=== PATIENT | female | born 1965 | race Caucasian/White ===

== ENCOUNTER 2023-10-10 08:55 | Emergency (ER) | payer BC ==
[~2023-10-10] VITALS: Ht 170.2 cm; Wt 113.2 kg
[2023-10-10] MEDS ORDERED: NEURONTIN300 MG/CAP PO (09:55)
[2023-10-10] MEDS ORDERED: NEURONTIN100 M1 PO (09:56)
[2023-10-10] MEDS ORDERED: CITALOPRAM40 MG PO (09:57)
[2023-10-10] MEDS ORDERED: ESTRACE0.1 MG/GM VG (09:58)
[2023-10-10] MEDS ORDERED: OMEPRAZOLE40 MG PO (09:59)
[2023-10-10] MEDS ORDERED: ONDANSETRON HYDR4 MG PO (10:00)
[2023-10-10] MEDS ORDERED: PROAIR HFA0.09 MG/AC IH (10:00)
[2023-10-10] MEDS ORDERED: ZYRTEC ALLERGY10 MG PO (10:01)
[2023-10-10] MEDS ORDERED: CARBAMAZEPINE100 MG PO (10:01)
[2023-10-10 10:35] LABS: BASO # 0.03 K/mm3 (0.02-0.10); EOS # 0.09 K/mm3 (0.04-0.40); EOS % 1.1 % (1.0-5.0); HEMATOCRIT 41.4 % (37.0-47.0); HEMOGLOBIN 13.8 g/dL (12.5-16.0); LYMPH# 1.31 K/mm3 (1.50-4.00); MEAN CELL VOLUME 91 fl (78-100); MEAN CORPUSCULAR HEMOGLOBIN 31 pg (27-31); MEAN CORPUSCULAR HGB CONC 33 g/dL (33-37); MEAN PLATELET VOLUME 8.5 fl (7.4-10.4); MONO # 0.77 K/mm3 (0.20-0.80); NEU # 6.04 K/mm3 (1.40-6.50); PLATELET COUNT 235 K/mm3 (130-400); RED BLOOD COUNT 4.53 M/mm3 (4.10-5.30); RED CELL DISTRIBUTION WIDTH 14.4 % (11.5-14.5); WHITE BLOOD COUNT 8.3 K/mm3 (4.8-10.8)
[2023-10-10 10:43] LABS: ALBUMIN 4.2 g/dL (3.5-5.0)
[2023-10-10 10:45] LABS: CALCIUM 9.2 mg/dL (8.3-10.5)
[2023-10-10 10:46] LABS: TOTAL PROTEIN 7.2 g/dL (6.4-8.3)
[2023-10-10 10:48] LABS: TOTAL BILIRUBIN 0.6 mg/dL (0.2-1.2)
[2023-10-10] MEDS ORDERED: MOXIFLOXACIN H400 M1 PO (11:59)
[2023-10-10] MEDS ORDERED: NEILMED SINUS R1 PKT NS (12:01)
[2023-10-10] MEDS ORDERED: PREDNISONE20 MG PO (12:08)
[2023-10-10 12:51] VITALS: BP 125/78
== END 2023-10-10 12:53 | disposition home or self-care (01) ==
LOC: ED 08:55
PROVIDERS: Physician Assistant
DX: J32.0 Chronic maxillary sinusitis (principal); Z88.1 Allergy status to other antibiotic agents; Z88.2 Allergy status to sulfonamides
CPT/HCPCS: J1885; J2405; J7030

== ENCOUNTER 2024-05-18 06:44 | Emergency (ER) | payer BC ==
[~2024-05-18] VITALS: Ht 170.2 cm; Wt 132.3 kg
[~2024-05-18 06:44] MED LIST: CARBAMAZEPINE100 MG PO; CITALOPRAM40 MG PO; ESTRACE0.1 MG/GM VG; MOXIFLOXACIN H400 M1 PO; NEILMED SINUS R1 PKT NS; NEURONTIN100 M1 PO; NEURONTIN300 MG/CAP PO; OMEPRAZOLE40 MG PO; ONDANSETRON HYDR4 MG PO; PREDNISONE20 MG PO; PROAIR HFA0.09 MG/AC IH; ZYRTEC ALLERGY10 MG PO
[2024-05-18] MEDS ORDERED: ASPIRIN E.C. 8181 MG ×2 (07:27→07:28)
[2024-05-18] MEDS ORDERED: BREO ELLIPTA 21 EACH IH (07:27)
[2024-05-18] MEDS ORDERED: IRBESARTAN75 MG PO (07:29)
[2024-05-18] MEDS ORDERED: PLAQUENIL 200M200 MG PO (07:29)
[2024-05-18] MEDS ORDERED: PREDNISONE10 MG PO (07:30)
[2024-05-18] MEDS ORDERED: SUNMARK ALLERGY10 M1 PO (07:31)
[2024-05-18 07:43] LABS: BASO # 0.01 K/mm3 (0.02-0.10); EOS # 0.06 K/mm3 (0.04-0.40); HEMATOCRIT 44.2 % (37.0-47.0); HEMOGLOBIN 14.4 g/dL (12.5-16.0); LYMPH# 1.74 K/mm3 (1.50-4.00); MEAN CELL VOLUME 87 fl (78-100); MEAN CORPUSCULAR HEMOGLOBIN 29 pg (27-31); MEAN CORPUSCULAR HGB CONC 33 g/dL (33-37); MEAN PLATELET VOLUME 8.6 fl (7.4-10.4); MONO # 0.37 K/mm3 (0.20-0.80); NEU # 3.55 K/mm3 (1.40-6.50); PLATELET COUNT 232 K/mm3 (130-400); RED BLOOD COUNT 5.06 M/mm3 (4.10-5.30); RED CELL DISTRIBUTION WIDTH 12.7 % (11.5-14.5); WHITE BLOOD COUNT 5.7 K/mm3 (4.8-10.8)
[2024-05-18 07:51] LABS: SODIUM 140 mmol/L (136-145)
[2024-05-18 07:52] LABS: ALBUMIN 4.3 g/dL (3.5-5.0); CALCIUM 9.8 mg/dL (8.3-10.5)
[2024-05-18 07:54] LABS: GLUCOSE 104 mg/dL (65-105)
[2024-05-18 07:55] LABS: CARBON DIOXIDE 26 mmol/L (22-29); TOTAL BILIRUBIN 0.6 mg/dL (0.2-1.2)
[2024-05-18 07:59] LABS: AST-SGOT 21 U/L (5-34)
[2024-05-18 08:01] LABS: ALT/SGPT 32 U/L (0-55)
[2024-05-18 08:07] LABS: TROPONIN-I < 0.030 ng/mL (0.00-0.033)
[2024-05-18 08:11] LABS: D-DIMER 0.77 mg/L FEU (0.15-0.50)
[2024-05-18] MEDS ORDERED: Iohexol 350 - 100 ML VIAL IV ONE (08:25)
[2024-05-18 10:23] VITALS: BP 115/76
== END 2024-05-18 10:23 | disposition home or self-care (01) ==
LOC: ED 06:44
PROVIDERS: Family Medicine
DX: R06.02 Shortness of breath (principal); R05.9 Cough, unspecified; R79.89 Other specified abnormal findings of blood chemistry; R53.83 Other fatigue; R07.89 Other chest pain
CPT/HCPCS: J7120; Q9967

== ENCOUNTER → 2024-10-27 | Outpatient (REF) | payer BC ==
[~2024-10-27] MED LIST changes: +ASPIRIN E.C. 8181 MG; +BREO ELLIPTA 21 EACH IH; +IRBESARTAN75 MG PO; +PLAQUENIL 200M200 MG PO; +PREDNISONE10 MG PO; +SUNMARK ALLERGY10 M1 PO
[2024-10-27 18:30] LABS: PH-URINE 6.5 (5.0 - 8.0); URINE APPEARANCE CLEAR (CLEAR); URINE BILIRUBIN NEGATIVE (NEGATIVE); URINE BLOOD NEGATIVE (NEGATIVE); URINE COLOR YELLOW (YELLOW); URINE GLUCOSE NEGATIVE (NEGATIVE); URINE KETONE NEGATIVE (NEGATIVE); URINE LEUKOCYTE ESTERASE NEGATIVE (NEGATIVE); URINE NITRATE NEGATIVE (NEGATIVE); URINE PROTEIN(semi-quant) NEGATIVE (NEGATIVE)
== END ==
LOC: LAB 17:39 → EDSTATUS 17:41
PROVIDERS: Family Medicine
DX: R35.0 Frequency of micturition (principal)